=== PATIENT | female | born 1965 | race Caucasian/White ===

== ENCOUNTER 2020-10-28 09:48 | Emergency (ER) | payer BC ==
[~2020-10-28] VITALS: Ht 165.1 cm; Wt 68.0 kg
--- NOTE | 2020-10-28 10:08 | NUR ---
PT IS IN ROOM #1. DR MULLINS EVALUATED THE PT.
[2020-10-28 10:33] LABS: ABG BASE EXCESS 2.6 mmol/L; ABG HCO3 27.5 mmol/L; ABG PCO2 43.7 mmHg (35.0-45.0); ABG PH 7.417 (7.350-7.450); ABG SITE RIGHT RADIAL; ABG TOTAL HEMOGLOBIN 13.6 G/dL (12.0-16.0); COHb 0.9 % (0.5-1.5); O2Hb 94.8 % (94.0-97.0)
[2020-10-28 10:58] LABS: CREATININE 0.7 mg/dL (0.6-1.3)
[2020-10-28 10:59] LABS: MEAN CORPUSCULAR HEMOGLOBIN 28.1 uug (24.7-32.8); MEAN CORPUSCULAR VOLUME 84.3 fL (75.5-95.3); PLATELET COUNT (AUTO) 138 K/uL (179-408)
[2020-10-28 11:13] LABS: *BILIRUBIN,URIN NEGATIVE (NEGATIVE); *CLARITY,URINE CLEAR (CLEAR); *COLOR,URINE YELLOW (YELLOW); *KETONES,URINE NEGATIVE (NEGATIVE); *UROBILINOGEN,URINE 0.2 E.U./dl (NORMAL); LEUKOCYTE ESTERASE ,URINE NEGATIVE (NEGATIVE); NITRITE, URINE NEGATIVE (NEGATIVE); UGLUCOSE NEGATIVE (NEGATIVE)
[2020-10-28 11:15] LABS: *BLOOD, URINE TRACE (NEGATIVE)
[2020-10-28 11:17] LABS: BILIRUBIN,TOTAL 0.2 mg/dL (0.2-1.0)
[2020-10-28] MEDS ORDERED: D-ME473S63 PO (11:41)
--- NOTE | 2020-10-28 11:58 | NUR ---
PT WAS EVALUATED BY DR MULLINS. PT WAS D/C'd TO HOME. D/C INSTRUCTIONS GIVEN TO THE PT BY DR MULLINS.
[2020-10-28 12:02] VITALS: BP 129/84
[2020-10-28 14:22] LABS: BACTERIA,URINE NONE SEEN /HPF (NONE SEEN); MUCUS,URINE FEW /LPF (0-FEW); SQUAMOUS EPITHELIAL CELL,UR FEW /HPF (NONE SEEN); URINE AMORPHOUS PHOSPHATES FEW /HPF
== END 2020-10-28 12:02 | disposition home or self-care (01) ==
LOC: ER 09:48
DX: J06.9 Acute upper respiratory infection, unspecified (principal); Z20.822 Contact with and (suspected) exposure to COVID-19; R07.89 Other chest pain
CPT/HCPCS: 36415; 36600; 71045; 80053; 81001; 82550; 82728; 83605; 83615; 83880; 84145; 84450; 84484; 85025; 85379; 85385; 85730; 86140; 87040 ×2; 87260; 87275; 87276; 87279; 87280; 87400; 87426; 99285; U0003; 70030-TC; A4663